=== PATIENT | male | born 1945 | race Caucasian/White ===

== ENCOUNTER → 2017-01-22 | Outpatient (CLI) | payer OTHER, BC ==
[~2017-01-22] MED LIST: ARANESP100 MCG/0. SC; ASPIRIN81 M2 PO; CALCITRIOL0.25 MCG PO; COLACE100 MG PO; COREG25 M1 PO; DILAUDID2 MG PO; FLOMAX0.4 MG PO; HEPARIN SO5000 UNITS SC; K-DUR20 MEQ PO; KRISTALOSE20 GM PO; LASIX20 MG PO; LASIX80 MG PO; LEVEMIR FL100 UNIT/1 SC; LEVEMIR100 UNIT/2 SC; LIPITOR40 MG PO; MULTI VITAMIN1 EACH PO; NOVOLIN,HU100 UNITS1 SC; PERCOCET 5/31 TABLET PO; POTASSIUM CHLO10 ME3 PO; PROTONIX40 MG PO; ROBITUSSIN AC,T10 ML PO; SENNA-DOCUSATE1 EAC1 PO; TEFLARO400 MG IV; ZOFRAN8 MG PO
== END | disposition home or self-care (01) ==
LOC: PICC 09:30
DX: M86.8X7 Other osteomyelitis, ankle and foot (principal)
CPT/HCPCS: 76937